=== PATIENT | male | born 1935 | race Caucasian/White ===

== ENCOUNTER 2017-08-21 07:07 | Day surgery (SDC) | payer OTHER ==
[2017-08-21 07:41] VITALS: BMI 25.3
[2017-08-21] MEDS ORDERED: PROPOFOL 20 ML ONE ×2 (08:09)
[2017-08-21] MEDS ORDERED: LIDOCAINE HCL/PF 2% SDV 5ML VIAL ONE (08:09)
[2017-08-21 09:02] VITALS: TEMP 97.8
[2017-08-21 10:12] VITALS: BP 146/56; PULSE 64
--- NOTE | 2017-08-22 14:20 | PATH ---
Surgical Pathology Report Patient Name: ALVIN EATON [facility]. Rec. #: [id number] /Age/Gender: 1935 (Age: 82) / M Account: [id number] Location: [facility] Taken: 08/21/2017 Received: 08/21/2017 Reported: 08/22/2017 Physicians: Priyanka Parker M.D. Specimen(s) Received A: BX CECAL POLYPS B: DISTAL TRANSVERSE COLON POLYP Clinical History Family history of colon cancer, polyp and adenoma surveillance Polyps, diverticulosis Final Diagnosis A. COLON, CECUM, POLYPS, BIOPSY: FRAGMENTS OF TUBULAR ADENOMA. B. COLON, DISTAL TRANSVERSE, POLYP, POLYPECTOMY: SERRATED ADENOMA. Electronically Signed Varinder Wallace M.D. Gross Description A. Received in formalin, labeled "biopsy cecal polyps" are multiple fragments of solorzano tissue 0.1 -0.3 cm in greatest dimension. The specimens are submitted in toto in one cassette. B. Received in formalin, labeled "distal transverse colon polyp" is a fragment of solorzano tissue measuring 0.3 cm in greatest dimension. The specimen is submitted in toto in one cassette. AF/08/21/2017 final/08/21/2017
== END 2017-08-21 09:55 | disposition home or self-care (01) ==
LOC: JASU-ENDO 07:07
PROVIDERS: ATTEND Internal Medicine Gastroenterology
PROC: 0DBL8ZX Excision of Transverse Colon, Via Natural or Artificial Opening Endoscopic, Diagnostic (ICD-10-PCS; 2017-08-21)
PROC: 0DBH8ZX Excision of Cecum, Via Natural or Artificial Opening Endoscopic, Diagnostic (ICD-10-PCS; principal; 2017-08-21 08:00)
DX: Z12.11 Encounter for screening for malignant neoplasm of colon (principal); Z86.010 Personal history of colon polyps; Z80.0 Family history of malignant neoplasm of digestive organs; D12.0 Benign neoplasm of cecum; D12.3 Benign neoplasm of transverse colon; K57.30 Diverticulosis of large intestine without perforation or abscess without bleeding; K64.8 Other hemorrhoids
CPT/HCPCS: 88305-TC

== ENCOUNTER 2019-08-10 08:07 | Day surgery (SDC) | payer OTHER ==
[2019-08-07 16:01] VITALS: BMI 24.7
[2019-08-10 10:41] VITALS: TEMP 98.2
[2019-08-10 11:43] VITALS: BP 133/50; PULSE 61
--- NOTE | 2019-08-11 17:49 | PATH ---
Surgical Pathology Report Patient Name: ALVIN EATON [facility]. Rec. #: [id number] /Age/Gender: 1935 (Age: 83) / M Account: [id number] Location: [facility]OS[facility] Taken: 08/10/2019 Received: 08/10/2019 Reported: 08/11/2019 Physicians: Priyanka Parker M.D. Specimen(s) Received POLYP RIGHT COLON DISTAL Clinical History Adenoma surveillance Postop diagnosis: Diverticulosis, cecal AVM, colon polyp Final Diagnosis RIGHT COLON POLYP, DISTAL, POLYPECTOMY: TUBULAR ADENOMA. Electronically Signed Joe Antony M.D. Gross Description Received in formalin, labeled "polyp right colon distal" are 4 solorzano, irregular portions of soft tissue measuring 0.1 to 0.3 cm. in greatest dimension. The specimen is submitted in toto in one cassette. ROBBY/08/11/2019 jamel/08/11/2019
== END 2019-08-10 11:35 | disposition home or self-care (01) ==
LOC: JASU-ENDO 08:07
PROVIDERS: ATTEND Internal Medicine Gastroenterology
PROC: 0DBK8ZX Excision of Ascending Colon, Via Natural or Artificial Opening Endoscopic, Diagnostic (ICD-10-PCS; principal; 2019-08-10 10:30)
DX: Z12.11 Encounter for screening for malignant neoplasm of colon (principal); Z86.010 Personal history of colon polyps; K64.8 Other hemorrhoids; K57.30 Diverticulosis of large intestine without perforation or abscess without bleeding; D12.2 Benign neoplasm of ascending colon
CPT/HCPCS: 88305-TC